=== PATIENT | female | born 1955 | race Caucasian/White ===

== ENCOUNTER 2018-10-30 21:24 | Emergency (ER) | payer OTHER, SELFPAY ==
[2018-10-30 21:31] VITALS: BP 170/69; PULSE 72; RESP 16; TEMP 36.3; O2SAT 98; BMI 26.4
--- NOTE | 2018-10-30 21:33 | DI.RAD.S_ITS ---
PROCEDURE: XR CHEST 1V INDICATIONS: chest pain TECHNIQUE: One view of the chest was acquired. COMPARISON: Elliot JEREMY Mark, CHEST 2 VIEW, 09/23/2009, 10:14. FINDINGS: Surgical changes and devices: None. Lungs and pleura: Lungs are clear. No pleural effusions or pneumothorax. Mediastinum: Mediastinal contours appear unchanged. Heart size is normal. Bones and chest wall: No suspicious bony lesions. Overlying soft tissues appear unremarkable. IMPRESSION: 1. No acute cardiopulmonary disease. Dictated by: Cristian Marcus M.D. on 10/30/2018 at 22:17 Approved by: Cristian Marcus M.D. on 10/30/2018 at 22:17
[2018-10-30 21:50] LABS: Add Manual Diff / Slide Review NO; Basophils Absolute Auto 100 /uL (0-100); Basophils Percent Auto 1.1 % (0-2); Eosinophils Absolute Auto 200 /uL (0-450); Hemoglobin 13.2 g/dL (12.0-16.0); Lymphocytes Absolute Auto 3500 /uL (1100-4500); Lymphocytes Percent Auto 38.6 % (25-40); Mean Corpuscular HGB Conc 33.7 % (30-36); Mean Corpuscular Hemoglobin 29.1 PG (26-34); Mean Corpuscular Volume 86.3 fL (80-100); Monocytes Absolute Auto 800 /uL (0-900); Monocytes Percent Auto 9.4 % (3-14); Neutrophils Absolute Auto 4400 /uL (1500-7000); Neutrophils Percent Auto 48.9 % (50-75); Platelet Count 388 X10^3/uL (150-400); Red Blood Cell Count 4.52 X10^6/uL (4.0-5.2); Red Cell Distribution Width 12.4 % (11.6-14.8); White Blood Cell Count 8.9 X10^3/uL (4.5-11.0)
[2018-10-30 22:00] VITALS: BP 163/72; PULSE 67; RESP 21; O2SAT 97
[2018-10-30 22:00] LABS: Alanine Aminotransferase 30 IU/L (9-52); Albumin 4.4 g/dL (3.5-5.0); Albumin Globulin Ratio 1.7 (1.0-2.8); Alkaline Phosphatase 65 U/L (38-126); Aspartate Aminotransferase 22 IU/L (14-36); BUN Creatinine Ratio 21.3 (6-22); Bilirubin Total 0.2 mg/dL (0.2-1.3); Blood Urea Nitrogen 17 mg/dL (7-17); Calcium 9.5 mg/dL (8.4-10.2); Carbon Dioxide 26 mmol/L (22-32); Chloride 106 mmol/L (98-107); Creatine Kinase 45 U/L (30-135); Estimated Glomerular Filt Rate > 60.0 mL/min (>60); Globulin 2.6 g/dL (1.7-4.1); Glucose 107 mg/dL (80-110); HEMOLYSIS < 15 (0-50); Lipase 176 U/L (23-300); Potassium 4.1 mmol/L (3.4-5.1); Sodium 142 mmol/L (137-145)
[2018-10-30 22:11] LABS: Troponin I < 0.012 ng/mL (0.01-0.034)
[2018-10-30] MEDS: SODIUM CHLORIDE 0.9% 1,000 ML 150 ML IV (22:12)
[2018-10-30] MEDS: ASPIRIN 81 MG TAB 324 MG PO (22:12)
--- NOTE | 2018-10-30 22:34 | ED_ITS ---
HPI - Chest Pain General Chief Complaint: Chest Pain Stated Complaint: CHEST PAINS Time Seen by Provider: 10/30/18 21:35 Source: patient Mode of arrival: ambulatory Limitations: no limitations History of Present Illness HPI narrative: 63F nonsmoker with asthma presents with sharp reproduceable chest pain that started at about noon while leaning over a craft project she is working on. She denies dizziness, weakness, lightheadedness or shortness of breath. She has no nausea, vomiting or diaphoresis. She has no ongoing symptoms. She states her symptoms started when she was leaning over a and she felt a burning and sharp pain in her upper abdomen. She does admit to some radiation to her back. She has a history of reflux and shoulder trouble, the the is a both of which seem to play a role in today's events. MD complaint: chest pain Onset (ago): hour(s) Duration: now resolved Onset: other Pain location: substernal Severity: mild Quality: sharp Pain radiation: back Relieving factors: rest Exacerbating factors: inspiration and movement Treatments prior to arrival chest pain: none Related Data Home Medications Medication Instructions Recorded Confirmed CHOLECALCIFEROL (D-SIL DROPS) 400 units PO QDAY #0 06/17/12 [FLAX OIL] 2,000 iu Q DAY #0 09/04/16 cyanocobalamin (vitamin B-12) 500 mcg PO QDAY #0 09/04/16 [Vitamin B-12] Previous Rx's Medication Instructions Recorded albuterol sulfate 3 ml INH Q4HP PRN #30 mg 12/14/16 albuterol sulfate [Proventil HFA] 1 puff INH Q4HP PRN #2 inh 12/15/16 Allergies Allergy/AdvReac Type Severity Reaction Status Date / Time codeine [CODEINE] Allergy Intermediate NAUSEA, Verified 10/30/18 21:31 HALLUCINATIONS GRASS Allergy Severe SYSTEMIC Uncoded 10/30/18 21:31 SWELLING AND ITCHING YELLOW HORNET Allergy Intermediate YAWNING, Uncoded 10/30/18 21:31 TEARING SULFA Allergy Mild RASH Uncoded 10/30/18 21:31 TREE POLLEN Allergy Mild Uncoded 10/30/18 21:31 Review of Systems Constitutional Denies chills, Denies fever(s), Denies lethargy and Denies weakness Eyes Denies change in vision, Denies eye discharge, Denies irritation and Denies loss of vision ENT Ears, Nose, Mouth, and Throat: Denies change in voice, Denies neck pain and De nies sore throat Cardiovascular Reports chest pain, Denies irregular heart rhythm, Denies lightheadedness, Denies palpitations, Denies dyspnea, Denies dyspnea on exertion and Denies orthopnea Respiratory Denies cough, Denies dyspnea, Denies dyspnea on exertion and Denies wheezing Gastrointestinal Gastrointestinal: Denies abdominal pain, Denies change in bowel habits, Denies diarrhea, Denies nausea and Denies vomiting Genitourinary Denies hematuria, Denies flank pain, Denies urinary incontinence and Denies urinary urgency Musculoskeletal Denies neck pain Integumentary/Breasts Denies pruritus, Denies erythema, Denies rash and Denies wounds Neurologic Denies confusion, Denies loss of vision and Denies weakness Psychiatric Denies anxiety, Denies confusion, Denies depression, Denies homicidal ideation and Denies suicidal ideation Endocrine Denies palpitations Hematologic/Lymphatic Denies easy bruising Allergic/Immunologic Denies wheezing PFSH Surgical History Status post laparoscopy Family History Brother Age: 58 Parkinson's disease High cholesterol Brother Age: 52 High cholesterol Father Age: 87 High cholesterol Trigeminal neuralgia Grandfather Stroke Family History Brother Age: 58 Parkinson's disease High cholesterol Brother Age: 52 High cholesterol Father Age: 87 High cholesterol Trigeminal neuralgia Grandfather Stroke Exam Narrative Exam Narrative: GENERAL: A 63-year-old female appears younger than stated age, resting comfortably and in no obvious distress HEAD: Atraumatic. Normocephalic. EYES: Pupils equal round and reactive. Extraocular motions intact. ENT: Nose without bleeding, purulent drainage or septal hematoma. NECK: Trachea midline. No JVD or lymphadenopathy. CARDIOVASCULAR: Regular rate and rhythm without murmurs, gallops, or rubs. RESPIRATORY: Clear to auscultation. Breath sounds equal bilaterally. No wheezes, rales, or rhonchi. GASTROINTESTINAL: Abdomen soft, non-tender, nondistended. No hepato- splenomegaly, or palpable masses. No guarding. EXTREMITIES: No clubbing, cyanosis, or edema. No joint tenderness, effusion, or edema noted. BACK: Nontender without deformity or crepitance. No flank tenderness. NEURO: AOx3. SKIN: No rash or erythema. Initial Vital Signs Initial Vital Signs: Vital Signs Temperature 97.4 F L 10/30/18 21:31 Pulse Rate 72 10/30/18 21:31 Respiratory Rate 16 10/30/18 21:31 Blood Pressure 170/69 H 10/30/18 21:31 Pulse Oximetry 98 10/30/18 21:31 Scores HEART Score Heart Score history: Slightly Suspicious Heart Score EKG: Normal Heart Score Age: 45-64 years old Heart Score risk factors: No known risk factors Heart Score troponin: < or = to normal limit Heart Score Total: 1 Course Orders Ordered: ED Orders 10/30/18 21:33 XR chest 1V Stat EKG-12 Lead Stat 10/30/18 21:40 Complete Blood Count AUTO DIFF Stat Comprehensive Metabolic Panel Stat Lipase Stat Troponin & CK Cardiac Panel Stat 10/31/18 EKG-12 Lead Stat Discontinued Medications Aspirin (Aspirin Chew) 324 mg PO NOW ONE Stop: 10/30/18 21:34 Last Admin: 10/30/18 22:12 Dose: 324 mg Sodium Chloride (Normal Saline 0.9%) 1,000 mls @ 150 mls/hr IV CONT FANNY Last Infusion: 10/30/18 22:51 Dose: 0 mls/hr Admin: 10/30/18 22:12 Dose: 150 mls/hr Reevaluation(s) Reevaluation #1: Patient is symptom-free for duration of visit. Vital Signs - 8 hr 10/30/18 21:31 10/30/18 22:00 Temperature 97.4 F L Pulse Rate 72 67 Respiratory Rate 16 21 Blood Pressure 170/69 H Blood Pressure [Right Arm] 163/72 H Pulse Oximetry 98 97 MDM - Chest Pain Lab Data Result diagrams: 10/30/18 21:40 10/30/18 21:40 Lab Results 10/30/18 10/30/18 Range/Units 21:40 21:40 WBC 8.9 (4.5-11.0) X10^3/uL RBC 4.52 (4.0-5.2) X10^6/uL Hgb 13.2 (12.0-16.0) g/dL Hct 39.0 (36-46) % MCV 86.3 (80-100) fL MCH 29.1 (26-34) PG MCHC 33.7 (30-36) % RDW 12.4 (11.6-14.8) % Plt Count 388 (150-400) X10^3/uL Neut % (Auto) 48.9 L (50-75) % Lymph % (Auto) 38.6 (25-40) % [place] % (Auto) 9.4 (3-14) % Eos % (Auto) 2.0 (2-4) % Baso % (Auto) 1.1 (0-2) % Neut # (Auto) 4400 (2777-1178) /uL Lymph # (Auto) 3500 (1777-8671) /uL [place] # (Auto) 800 (0-900) /uL Eos # (Auto) 200 (0-450) /uL Baso # (Auto) 100 (0-100) /uL Sodium 142 (137-145) mmol/L Potassium 4.1 (3.4-5.1) mmol/L Chloride 106 (98-107) mmol/L Carbon Dioxide 26 (22-32) mmol/L BUN 17 (7-17) mg/dL Creatinine 0.80 (0.52-1.04) mg/dL Estimated GFR > 60.0 (>60) mL/min BUN/Creatinine Ratio 21.3 (6-22) Glucose 107 (80-110) mg/dL Calcium 9.5 (8.4-10.2) mg/dL Total Bilirubin 0.2 (0.2-1.3) mg/dL AST 22 (14-36) IU/L ALT 30 (9-52) IU/L Alkaline Phosphatase 65 (38-126) U/L Total Creatine Kinase 45 (30-135) U/L CK-MB (CK-2) TNP CK-MB (CK-2) Rel Index TNP Troponin I < 0.012 (0.01-0.034) ng/mL Total Protein 7.0 (6.3-8.2) g/dL Albumin 4.4 (3.5-5.0) g/dL Globulin 2.6 (1.7-4.1) g/dL Albumin/Globulin Ratio 1.7 (1.0-2.8) Lipase 176 (23-300) U/L Imaging Data Chest x-ray: Radiologist's impression: [address] [address] XRay Report Signed Patient: Louann Garcia PMR#: [id number] : 7Acct:[id number] Age/Sex: 63 / FDate of Service: 10/30/18 Loc: ED Accession Number: [id number] Procedure: XR chest 1V Ordering Provider: Nikolai Beatty D.O. PROCEDURE: XR CHEST 1V INDICATIONS: chest pain TECHNIQUE: One view of the chest was acquired. COMPARISON: JEREMY Tenorio, CHEST 2 VIEW, 09/23/2009, 10:14. FINDINGS: Surgical changes and devices: None. Lungs and pleura: Lungs are clear. No pleural effusions or pneumothorax. Mediastinum: Mediastinal contours appear unchanged. Heart size is normal. Bones and chest wall: No suspicious bony lesions. Overlying soft tissues appear unremarkable. IMPRESSION: 1. No acute cardiopulmonary disease. Dictated by: Cristian Marcus M.D. on 10/30/2018 at 22:17 ECG Data Attestation: I personally reviewed and interpreted this ECG as follows: Prior ECG tracings: not available for review Interpretation: EKG is normal sinus rhythm rate [ 70] and free of any signs of ischemia or ectopy. No ST segmental elevation or depression. No T wave inversions MDM Narrative Medical decision making narrative: Multiple etiologies for patient's symptoms considered including: [A musculoskeletal, the reflux, a cardiac ischemia, pulmonary embolism, versus other] Patient's symptoms improved or duration of stay with above-stated therapies. Findings and discharge diagnosis discussed with patient/family followed by jason yost understanding Return precautions discussed with patient/family whom verbalize understanding. Discharge Plan Departure Patient Disposition: Home Clinical Impression: Atypical chest pain Hypertension Qualifiers: Hypertension type: essential hypertension Qualified Code(s): I10 - Essential (primary) hypertension Discharge Date/Time: 10/30/18 22:53 Interventions: ED Discharge Assessment Last Done: 10/30/18 22:53 Instructions: DI for Atypical Chest Pain Activity Restrictions/Additional Instructions: *You have been diagnosed with [ atypical chest pain ] *What to do: *Take medications as directed, including a baby aspirin daily *Follow up with your primary care provider in 2-3 days, call for an appointment. Let them know you were seen in the Emergency Department and that we ask that you be seen in follow up *Return to ER if you should have any new, worsening or concerning symptoms Prescriptions: No Action CHOLECALCIFEROL (D-SIL DROPS) 400 units PO QDAY Qty: 0 RF: 0 cyanocobalamin (vitamin B-12) [Vitamin B-12] 500 MCG tablet 500 mcg PO QDAY Qty: 0 RF: 0 [FLAX OIL] 2,000 iu Q DAY Qty: 0 RF: 0 albuterol sulfate 2.5 MG/3 ML solution for nebulization 3 ml INH Q4HP PRNQty: 30 RF: 2 albuterol sulfate [Proventil HFA] 90 MCG/PUFF HFA aerosol inhaler 1 puff INH Q4HP PRNQty: 2 RF: 2 Referrals: Jose Rea MD [Primary Care Provider] -
== END 2018-10-30 22:53 | disposition home or self-care (01) ==
PROVIDERS: Emergency Provider Emergency Medicine; Family Provider Family Medicine; PCP Family Medicine
DX: R07.89 Other chest pain (principal); I10 Essential (primary) hypertension
CPT/HCPCS: 36591; 71045; 80053; 82550; 83690; 84484; 85025; 93005; 96360; 99283; 99285

== ENCOUNTER → 2019-04-03 09:34 | Outpatient (CLI) | payer OTHER, SELFPAY ==
--- NOTE | 2019-04-03 | DI.MRI.S_ITS ---
PROCEDURE: MR HEAD/BRAIN WO CON INDICATIONS: Unqualified visual loss, both eyes TECHNIQUE: Non-contrast axial T1 spin echo, axial T2 fast spin echo, sagittal and axial FLAIR, coronal T2 fast spin echo, axial gradient echo, axial diffusion and ADC through the brain. COMPARISON: None. FINDINGS: Image quality: Excellent. CSF spaces: Ventricles appear symmetric in size and shape. Basal cisterns are patent. No extra-axial fluid collections. Brain: No intracranial bleeds or mass effects. There is cerebral volume loss for age. There are periventricular and deep white matter chronic small vessel ischemic changes. Brainstem appears normal. Diffusion-weighted images show no acute ischemic insults. No chronic ischemic insults. Normal intravascular flow voids are present. Skull and face: In this patient with this given history, scrutiny is given to the orbits. The limits of this noncontrast study, no significant globe or orbital abnormalities can be seen. Calvarial bone marrow is normal in signal. Note is made of a cavum septum pellucidum. When discovered in isolation, this is considered to be a developmental variant of no clinical consequence. Sinuses: Sinuses and mastoids are clear. IMPRESSION: Unremarkable intracranial study for age. No findings of acute or subacute infarction can be seen. No orbital abnormality can be seen the limits of this study. Dictated by: Pancho Gracia M.D. on 04/03/2019 at 9:31 Approved by: Pancho Gracia M.D. on 04/03/2019 at 9:34
== END ==
PROVIDERS: PCP Family Medicine; Visit Provider Family Medicine
DX: H54.3 Unqualified visual loss, both eyes (principal)
CPT/HCPCS: 70551

== ENCOUNTER 2019-04-21 11:51 | Emergency (ER) | payer OTHER, SELFPAY ==
[2019-04-21] VITALS (7 sets, daily range): BP systolic 128–183; BP diastolic 56–76; PULSE 60–84; RESP 13–21; TEMP 36.4; O2SAT 97–100
[2019-04-21 12:18] LABS: Add Manual Diff / Slide Review NO; Basophils Absolute Auto 100 /uL (0-100); Basophils Percent Auto 0.7 % (0-2); Eosinophils Absolute Auto 100 /uL (0-450); Eosinophils Percent Auto 1.6 % (2-4); Hematocrit 42.2 % (36-46); Hemoglobin 14.5 g/dL (12.0-16.0); Lymphocytes Absolute Auto 2400 /uL (1100-4500); Lymphocytes Percent Auto 31.5 % (25-40); Mean Corpuscular HGB Conc 34.3 % (30-36); Mean Corpuscular Hemoglobin 29.7 PG (26-34); Mean Corpuscular Volume 86.7 fL (80-100); Monocytes Absolute Auto 500 /uL (0-900); Monocytes Percent Auto 6.7 % (3-14); Neutrophils Absolute Auto 4600 /uL (1500-7000); Neutrophils Percent Auto 59.5 % (50-75); Platelet Count 441 X10^3/uL (150-400); Red Blood Cell Count 4.86 X10^6/uL (4.0-5.2); Red Cell Distribution Width 12.6 % (11.6-14.8); White Blood Cell Count 7.7 X10^3/uL (4.5-11.0)
--- NOTE | 2019-04-21 12:37 | DI.CT.S_ITS ---
PROCEDURE: CT ABDOMEN PELVIS W CON INDICATIONS: severe right lower quad pain, sent from [facility]? TECHNIQUE: After the administration of intravenous contrast, 5 mm thick sections acquired from the diaphragm to the symphysis. 5 mm coronal and sagittal reformats were acquired. For radiation dose reduction, the following was used: automated exposure control, adjustment of mA and/or kV according to patient size. COMPARISON: None. FINDINGS: Image quality: Excellent. ABDOMEN: Lung bases: Lung bases are clear. Heart size is normal. Solid organs: Liver is normal in size and enhancement. Gallbladder appears normal. Biliary system is non dilated. Pancreas enhances normally. Spleen is normal in size and enhancement. No adrenal nodules. Kidneys demonstrate normal size and enhancement, without hydronephrosis. Peritoneum and bowel: Bowel loops demonstrate normal wall thickness and caliber. No free fluid or air. Nodes and vessels: No retroperitoneal or mesenteric adenopathy by size criteria. Aorta and inferior vena cava are normal in size. Miscellaneous: No ventral hernias. PELVIS: Genitourinary: Bladder wall thickness is normal. No adnexal pathology found. Miscellaneous: No inguinal hernias or adenopathy. No evidence of appendicitis Bones: No suspicious bony lesions. No vertebral body compression fractures. IMPRESSION: Source of pain is not seen. The right ovary is visualized and appears normal (centered on series 2 image 63). A normal or abnormal appendix could not be located. No secondary CT evidence of acute appendicitis is found. Dictated by: Charles Serrano M.D. on 04/21/2019 at 13:23 Approved by: Charles Serrano M.D. on 04/21/2019 at 13:25
[2019-04-21 12:39] LABS: Alanine Aminotransferase 30 IU/L (9-52); Albumin 4.8 g/dL (3.5-5.0); Albumin Globulin Ratio 1.7 (1.0-2.8); Alkaline Phosphatase 71 U/L (38-126); Aspartate Aminotransferase 29 IU/L (14-36); BUN Creatinine Ratio 17.1 (6-22); Bilirubin Total 0.6 mg/dL (0.2-1.3); Blood Urea Nitrogen 12 mg/dL (7-17); Calcium 9.6 mg/dL (8.4-10.2); Carbon Dioxide 27 mmol/L (22-32); Chloride 103 mmol/L (98-107); Estimated Glomerular Filt Rate > 60.0 mL/min (>60); Globulin 2.9 g/dL (1.7-4.1); Glucose 96 mg/dL (80-110); HEMOLYSIS < 15 (0-50); Lipase 121 U/L (23-300); Sodium 142 mmol/L (137-145); Total Protein 7.7 g/dL (6.3-8.2)
[2019-04-21] MEDS: SODIUM CHLORIDE 0.9% 1,000 ML 150 ML IV (12:39)
--- NOTE | 2019-04-21 12:54 | ED.ABDPAIN ---
HPI - Abdominal Pain General Chief Complaint: Abdominal Pain Stated Complaint: Right side abd pain Time Seen by Provider: 04/21/19 11:54 Source: patient Mode of arrival: Ambulatory History of Present Illness HPI narrative: 63-year-old female nonsmoker with history of endometriosis and asthma presents with her from [place] for evaluation of abdominal pain. Her pain started as periumbilical and was quite reminiscent of prior episodes of endometriosis, though she has not had an episode over 20 years and went through menopause 10 years ago. Over the course of the morning she had a migration of her pain to the right side of her abdomen a bit. She denies any fever or chills. She had some nausea but no vomiting. She has a strong appetite and is hungry upon arrival. She denies any runny nose, sore throat or cough. She has no chest pain or shortness of breath. She denies any provocation or palliation of her pain. She was seen and evaluated by her PCP whom sent her here for evaluation of possible appendicitis or other. She denies dysuria, frequency or urgency. She has had no vaginal bleeding or discharge MD complaint: abdominal pain Onset (ago): hour(s) Pain Consistency: constant Location: periumbilical and RLQ Severity: moderate Quality: cramping and aching Relieving factors: rest Exacerbating factors: movement Associated symptoms: nausea Related Data Patient : No Home Medications Medication Instructions Recorded Confirmed albuterol sulfate [Proventil HFA] 1 puff INHALATION Q4-6H PRN 04/21/19 04/21/19 epinephrine [EpiPen] 0.3 mg IM PRN PRN 04/21/19 04/21/19 Allergies Allergy/AdvReac Type Severity Reaction Status Date / Time codeine [CODEINE] Allergy Intermediate NAUSEA, Verified 02/19/19 16:57 HALLUCINATIONS GRASS Allergy Severe SYSTEMIC Uncoded 10/30/18 21:31 SWELLING AND ITCHING YELLOW HORNET Allergy Intermediate YAWNING, Uncoded 10/30/18 21:31 TEARING SULFA Allergy Mild RASH Uncoded 10/30/18 21:31 TREE POLLEN Allergy Mild Uncoded 10/30/18 21:31 Review of Systems Constitutional Constitutional: Denies chills, Denies fatigue, Denies fever(s), Denies frequent falls, Denies lethargy and Denies weakness Eyes Eyes: Denies change in vision, Denies eye discharge, Denies irritation and Denies loss of vision ENT Ears, Nose, Mouth, and Throat: Denies change in voice, Denies dizziness, Denies neck pain, Denies sore throat and Denies throat swelling Cardiovascular Cardiovascular: Denies chest pain, Denies irregular heart rhythm, Denies lightheadedness, Denies palpitations, Denies dyspnea, Denies dyspnea on exertion and Denies orthopnea Respiratory Respiratory: Denies cough, Denies dyspnea, Denies dyspnea on exertion and Denies wheezing Gastrointestinal Gastrointestinal: Reports abdominal pain, Denies change in bowel habits, Denies diarrhea, Reports nausea and Denies vomiting Genitourinary Genitourinary: Denies hematuria, Denies flank pain, Denies urinary incontinence and Denies urinary urgency Musculoskeletal Musculoskeletal: Denies back pain, Denies muscle weakness, Denies neck pain, Denies numbness and Denies tingling Integumentary/Breasts Skin/Breast: Denies pruritus, Denies erythema, Denies rash and Denies wounds Neurologic Neurologic: Denies behavioral changes, Denies confusion, Denies dizziness, Denies frequent falls, Denies loss of vision, Denies numbness, Denies tingling and Denies weakness Psychiatric Psychiatric: Denies anxiety, Denies behavioral changes, Denies confusion, Denies depression, Denies homicidal ideation and Denies suicidal ideation Endocrine Endocrine: Denies fatigue, Denies flushing and Denies palpitations Hematologic/Lymphatic Hematologic/Lymphatic: Denies easy bruising Allergic/Immunologic Allergic/Immunologic: Denies urticaria, Denies throat swelling and Denies wheezing PFSH Surgical History Status post laparoscopy Family History Brother Age: 59 Parkinson's disease High cholesterol Brother Age: 53 High cholesterol Father Age: 88 High cholesterol Trigeminal neuralgia Grandfather Stroke Social History Smoking Status: Never smoker Family History Brother Age: 59 Parkinson's disease High cholesterol Brother Age: 53 High cholesterol Father Age: 88 High cholesterol Trigeminal neuralgia Grandfather Stroke Social History (Reviewed 04/21/19 @ 20:55 by TRISH Delaney Smoking Status: Never smoker Exam Narrative Exam Narrative: GENERAL: [63] year old patient appears stated age. Well-nourished, well-developed patient, in mild distress. HEAD: Atraumatic. Normocephalic. EYES: Pupils equal round and reactive. Extraocular motions intact. No scleral icterus. No injection or drainage. ENT: Nose without bleeding, purulent drainage. Throat without erythema, tonsillar hypertrophy or exudate. Airway patent. NECK: Trachea midline. Non tender CARDIOVASCULAR: Regular rate and rhythm without murmurs, gallops, or rubs. RESPIRATORY: Clear to auscultation. Breath sounds equal bilaterally. No wheezes, rales, or rhonchi. GASTROINTESTINAL: Abdomen soft, mild periumbilical tenderness, nondistended. No pain at McBurney's, no Rovsing's, no pain with heel tap. No obturator or psoas sign EXTREMITIES: No edema or joint tenderness. BACK: Nontender without deformity or crepitance. No flank tenderness. NEURO: AOx3. SKIN: No rash or erythema of visible areas Initial Vital Signs Initial Vital Signs: Vital Signs Temperature 97.5 F L 04/21/19 11:59 Pulse Rate 84 04/21/19 11:59 Respiratory Rate 13 04/21/19 11:59 Blood Pressure 183/76 H 04/21/19 11:59 Pulse Oximetry 99 04/21/19 11:59 Course Course Course Narrative: Orders Ordered: ED Orders 04/21/19 12:10 Complete Blood Count AUTO DIFF Stat Comprehensive Metabolic Panel Stat Lipase Stat 04/21/19 12:37 CT abdomen pelvis w con Stat 04/21/19 14:50 US pelvic complete Stat Discontinued Medications Sodium Chloride (Normal Saline 0.9%) 1,000 mls @ 150 mls/hr IV CONT FANNY Last Infusion: 04/21/19 17:42 Dose: 0 mls/hr Documented by: LEONELARRINGTO Admin: 04/21/19 12:39 Dose: 150 mls/hr Documented by: LEONELARRINGTO Consultations Consultation #1: Brief discussion with OB Gyne regarding follow-up plan for fibroids. Vital Signs Vital signs: Vital Signs - 8 hr 04/21/19 13:05 04/21/19 14:00 04/21/19 15:00 Pulse Rate 70 67 66 Respiratory Rate 21 18 17 Blood Pressure [Left Arm] 146/72 H 130/65 138/66 Pulse Oximetry 100 97 98 04/21/19 16:00 04/21/19 17:00 Pulse Rate 68 63 Respiratory Rate 18 15 Blood Pressure [Left Arm] 137/76 128/56 L Pulse Oximetry 98 99 MDM - Abdominal Pain Lab Data Result diagrams: 04/21/19 12:10 04/21/19 12:10 Labs: Lab Results 04/21/19 04/21/19 Range/Units 12:10 12:10 WBC 7.7 (4.5-11.0) X10^3/uL RBC 4.86 (4.0-5.2) X10^6/uL Hgb 14.5 (12.0-16.0) g/dL Hct 42.2 (36-46) % MCV 86.7 (80-100) fL MCH 29.7 (26-34) PG MCHC 34.3 (30-36) % RDW 12.6 (11.6-14.8) % Plt Count 441 H (150-400) X10^3/uL Neut % (Auto) 59.5 (50-75) % Lymph % (Auto) 31.5 (25-40) % [place] % (Auto) 6.7 (3-14) % Eos % (Auto) 1.6 L (2-4) % Baso % (Auto) 0.7 (0-2) % Neut # (Auto) 4600 (6720-9722) /uL Lymph # (Auto) 2400 (7803-5947) /uL [place] # (Auto) 500 (0-900) /uL Eos # (Auto) 100 (0-450) /uL Baso # (Auto) 100 (0-100) /uL Sodium 142 (137-145) mmol/L Potassium 4.0 (3.4-5.1) mmol/L Chloride 103 (98-107) mmol/L Carbon Dioxide 27 (22-32) mmol/L BUN 12 (7-17) mg/dL Creatinine 0.70 (0.52-1.04) mg/dL Estimated GFR > 60.0 (>60) mL/min BUN/Creatinine Ratio 17.1 (6-22) Glucose 96 (80-110) mg/dL Calcium 9.6 (8.4-10.2) mg/dL Total Bilirubin 0.6 (0.2-1.3) mg/dL AST 29 (14-36) IU/L ALT 30 (9-52) IU/L Alkaline Phosphatase 71 (38-126) U/L Total Protein 7.7 (6.3-8.2) g/dL Albumin 4.8 (3.5-5.0) g/dL Globulin 2.9 (1.7-4.1) g/dL Albumin/Globulin Ratio 1.7 (1.0-2.8) Lipase 121 (23-300) U/L Point of care testing: Urine Dip Bedside Urine Glucose Negative Bedside Urine Bilirubin - Negative Bedside Urine Ketone - Negative Urine Specific [place] 1.015 Bedside Urine Occult Blood - Negative Bedside Urine pH 6.0 Bedside Urine Protein - Negative Bedside Urine Urobilinogen - Negative Bedside Urine Nitrite - Negative Bedside Urine Leukocytes - Negative Esterase Imaging Data CT scan - abdomen: Radiologist's impression: [facility] [employer] DATE TYPE STATUS AUTHOR 04/21/19 14:50 Jayesh Lawler 04/21/19 12:37 Charles Serrano 04/03/19 00:00 Pancho Gracia 10/30/18 21:33 Cristian Marcus Sheila P 63, F1955 DEP ER, [facility] 65.771kg Abdominal Pain Search Chart No Data to Display NAUSEA, HALLUCINATIONS SYSTEMIC SWELLING AND ITCHING YAWNING, TEARING RASH ONSET 09/04/16 09/04/16 09/04/16 09/04/16 09/04/16 09/04/16 09/04/16 Today 17:00 Louann Garcia P 63 F 1955 [place] [address] CT Scan Report Signed Patient: Louann Garcia PMR#: [id number] : 1955cct:[id number] Age/Sex: 63 / FDate of Service: 04/21/19 Loc: ED Accession Number: [id number] Procedure: CT abdomen pelvis w con Ordering Provider: Nikolai Beatty D.O. PROCEDURE: CT ABDOMEN PELVIS W CON INDICATIONS: severe right lower quad pain, sent from [facility]? TECHNIQUE: After the administration of intravenous contrast, 5 mm thick sections acquired from the diaphragm to the symphysis. 5 mm coronal and sagittal reformats were acquired. For radiation dose reduction, the following was used: automated exposure control, adjustment of mA and/or kV according to patient size. COMPARISON: None. FINDINGS: Image quality: Excellent. ABDOMEN: Lung bases: Lung bases are clear. Heart size is normal. Solid organs: Liver is normal in size and enhancement. Gallbladder appears normal. Biliary system is non dilated. Pancreas enhances normally. Spleen is normal in size and enhancement. No adrenal nodules. Kidneys demonstrate normal size and enhancement, without hydronephrosis. Peritoneum and bowel: Bowel loops demonstrate normal wall thickness and caliber. No free fluid or air. Nodes and vessels: No retroperitoneal or mesenteric adenopathy by size criteria. Aorta and inferior vena cava are normal in size. Miscellaneous: No ventral hernias. PELVIS: Genitourinary: Bladder wall thickness is normal. No adnexal pathology found. Miscellaneous: No inguinal hernias or adenopathy. No evidence of appendicitis Bones: No suspicious bony lesions. No vertebral body compression fractures. IMPRESSION: Source of pain is not seen. The right ovary is visualized and appears normal (centered on series 2 image 63). A normal or abnormal appendix could not be located. No secondary CT evidence of acute appendicitis is found. Dictated by: Charles Serrano M.D. on 04/21/2019 at 13:23 Approved by: Charles Serrano M.D. on 04/21/2019 at 13:25 US - abdomen: Radiologist's impression: Chart [facility] DATE TYPE STATUS AUTHOR Paula 04/21/19 14:50 Jayesh Lawler 04/21/19 12:37 Charles Serrano 04/03/19 00:00 Pancho Gracia 10/30/18 21:33 Cristian Marcus Sheila P 63, F1955 DEP ER, [facility] 65.771kg Abdominal Pain Search Chart No Data to Display NAUSEA, HALLUCINATIONS SYSTEMIC SWELLING AND ITCHING YAWNING, TEARING RASH ONSET 09/04/16 09/04/16 09/04/16 09/04/16 09/04/16 09/04/16 09/04/16 Today 17:00 Louann Garcia P 63 F [address] [address] Ultrasound Report Signed Patient: Louann Garcia PMR#: [id number] : 1955cct:[id number] Age/Sex: 63 / FDate of Service: 04/21/19 Loc: ED Accession Number: [id number] Procedure: US pelvic complete Ordering Provider: Nikolai Beatty D.O. PROCEDURE: US PELVIC COMPLETE INDICATIONS: SEVERE RLQ PAIN, NORMAL CT TECHNIQUE: Real-time scanning was performed of the pelvic organs, with image documentation. Additional endovaginal scanning was necessary due to incomplete visualization of the adnexal and endometrial structures by transabdominal scanning. COMPARISON: [facility], CT, CT ABDOMEN PELVIS W CON, 04/21/2019, 12:52. FINDINGS: Transabdominal scanning: Limited scanning through the kidneys shows no hydronephrosis. 3.9 cm left renal cyst is again seen unchanged from CT study. No pathologic free abdominal fluid. Physiologic amount of free fluid is seen in the pelvis. Endovaginal scanning: Uterus: Uterus is normal in size at the 5.2 x 2.4 x 3.6 cm. The endometrium measures 3 mm in combined thickness. There is no endometrial mass or fluid. Diffusely heterogeneous myometrial echotexture is seen. 1.1 x 1 x 1 cm posterior submucosal fibroid is noted. 1.5 x 1.2 x 2 cm subserosal fibroid is also seen in posterior myometrium. 9 x 6 x 8 mm complex area with trace amount of free fluid is seen within the endocervical canal. Ovaries: Right ovary measures 1.8 x 1.1 x 1.3 cm in size. Left ovary measures 2.5 x 0.9 x 1.1 cm in size. 6 mm cyst is seen in left ovary. No gross solid renal lesion. IMPRESSION: 1. Heterogeneous myometrial echotexture with 2 uterine fibroids as above. 2. Small amount of fluid with 9 mm complex structure seen within the endocervical canal which could represent debris versus small polyp. [employer] correlation is recommended. No gross endometrial mass or fluid. 3. No gross abnormality is seen in bilateral ovaries. Dictated by: Jayesh Lawler M.D. on 04/21/2019 at 16:57 Approved by: Jayesh Lawler M.D. on 04/21/2019 at 17:02 [facility] Narrative Medical decision making narrative: Multiple etiologies for patient's symptoms considered including: [Appendicitis versus kidney stone versus ovarian cyst versus torsion versus gastroenteritis versus mesenteric adenitis versus other] Patient's symptoms improved or duration of stay with above-stated therapies. Findings and discharge diagnosis discussed with patient/family followed by verbalization of understanding Return precautions discussed with patient/family whom verbalize understanding. Discharge Plan Departure Patient Disposition: Home Clinical Impression: Fibroid uterus Qualifiers: Uterine leiomyoma location: unspecified location Qualified Code(s): D25.9 - Leiomyoma of uterus, unspecified Discharge Date/Time: 04/21/19 17:43 Instructions: DI for Uterine Fibroids Activity Restrictions/Additional Instructions: *You have been diagnosed with [pelvic pain most consistent with uterine fibroids, kidney stones and appendicitis considered but thought less likely given the results of our workup] *What to do: *Take medications as directed *Follow up with your primary care provider in 2-3 days, call for an appointment. Let them know you were seen in the Emergency Department and that we ask that you be seen in follow up *Return to ER if you should have any new, worsening or concerning symptoms, Prescriptions: No Action albuterol sulfate [Proventil HFA] 90 MCG/PUFF HFA aerosol inhaler 1 puff INHALATION Q4-6H PRN (Reason: Shortness Of Breath) RF: 0 epinephrine [EpiPen] 0.3 mg/0.3 mL Auto-Injector 0.3 mg IM PRN PRN (Reason: Allergic Reaction) RF: 0 Referrals: Jose Rosenthal MD [Physician] - Jose Rea MD [Primary Care Provider] -
--- NOTE | 2019-04-21 14:50 | DI.US.S_ITS ---
PROCEDURE: US PELVIC COMPLETE INDICATIONS: SEVERE RLQ PAIN, NORMAL CT TECHNIQUE: Real-time scanning was performed of the pelvic organs, with image documentation. Additional endovaginal scanning was necessary due to incomplete visualization of the adnexal and endometrial structures by transabdominal scanning. COMPARISON: [facility], CT, CT ABDOMEN PELVIS W CON, 04/21/2019, 12:52. FINDINGS: Transabdominal scanning: Limited scanning through the kidneys shows no hydronephrosis. 3.9 cm left renal cyst is again seen unchanged from CT study. No pathologic free abdominal fluid. Physiologic amount of free fluid is seen in the pelvis. Endovaginal scanning: Uterus: Uterus is normal in size at the 5.2 x 2.4 x 3.6 cm. The endometrium measures 3 mm in combined thickness. There is no endometrial mass or fluid. Diffusely heterogeneous myometrial echotexture is seen. 1.1 x 1 x 1 cm posterior submucosal fibroid is noted. 1.5 x 1.2 x 2 cm subserosal fibroid is also seen in posterior myometrium. 9 x 6 x 8 mm complex area with trace amount of free fluid is seen within the endocervical canal. Ovaries: Right ovary measures 1.8 x 1.1 x 1.3 cm in size. Left ovary measures 2.5 x 0.9 x 1.1 cm in size. 6 mm cyst is seen in left ovary. No gross solid renal lesion. IMPRESSION: 1. Heterogeneous myometrial echotexture with 2 uterine fibroids as above. 2. Small amount of fluid with 9 mm complex structure seen within the endocervical canal which could represent debris versus small polyp. [employer] correlation is recommended. No gross endometrial mass or fluid. 3. No gross abnormality is seen in bilateral ovaries. Dictated by: Jayesh Lawler M.D. on 04/21/2019 at 16:57 Approved by: Jayesh Lawler M.D. on 04/21/2019 at 17:02
== END 2019-04-21 17:43 | disposition home or self-care (01) ==
PROVIDERS: Emergency Provider Emergency Medicine; PCP Family Medicine
DX: D25.9 Leiomyoma of uterus, unspecified (principal)
CPT/HCPCS: 36591; 74177; 76830; 76856; 80053; 81003; 83690; 85025; 96360; 96361; 99283; 99285; Q9967

== ENCOUNTER → 2019-05-22 10:54 | Outpatient (CLI) | payer OTHER, SELFPAY ==
--- NOTE | 2019-05-22 | DI.MG.S_ITS ---
BILATERAL DIGITAL SCREENING MAMMOGRAM 3D/2D WITH CAD: 05/22/2019 CLINICAL: Routine screening. Comparison is made to exams dated: 07/20/2017 ultrasound, 10/13/2015 mammogram, and 09/27/2012 mammogram - [facility]. The tissue of both breasts is heterogeneously dense. This may lower the sensitivity of mammography. Current study was also evaluated with a Computer Aided Detection (CAD) system. No significant masses, calcifications, or other findings are seen in either breast. There has been no significant interval change. IMPRESSION: NEGATIVE There is no mammographic evidence of malignancy. A 1 year screening mammogram is recommended. This exam was interpreted at Station ID: [id number]. NOTE: For mammograms, a report in lay terms will be sent to the patient. Approximately 15% of breast malignancies will not be visualized mammographically. In the management of a palpable breast mass, a negative mammogram must not discourage biopsy of a clinically suspicious lesion. Electronically Signed By: Ross harman/cindy:05/22/2019 11:53:22 copy to: ENOCH MCKEON letter sent: Normal Exam ACR BI-RADS Category 1: Negative [id number]
== END ==
PROVIDERS: PCP Family Medicine; Visit Provider Family Medicine
DX: Z12.31 Encounter for screening mammogram for malignant neoplasm of breast (principal)
CPT/HCPCS: 77063; 77067

== ENCOUNTER → 2021-12-19 11:35 | Outpatient (CLI) | payer MEDICARE, OTHER, SELFPAY ==
--- NOTE | 2021-12-19 11:43 | DI.MG.S_ITS ---
BILATERAL DIGITAL SCREENING MAMMOGRAM 3D/2D WITH CAD: 12/19/2021 CLINICAL: Routine screening. Comparison is made to exams dated: 05/22/2019 mammogram, 07/20/2017 mammogram, and 10/13/2015 mammogram - [facility]. The tissue of both breasts is heterogeneously dense. This may lower the sensitivity of mammography. Current study was also evaluated with a Computer Aided Detection (CAD) system. There is a possible developing asymmetry in the right breast middle depth lateral region seen on the craniocaudal view only. There is architectural distortion associated with the asymmetry. There also is an oval asymmetry with a circumscribed margin in the right breast middle depth medial region seen on the craniocaudal view only. This is more prominent and increased in size. No other significant masses, calcifications, or other findings are seen in either breast. IMPRESSION: INCOMPLETE: NEEDS ADDITIONAL IMAGING EVALUATION The possible developing asymmetry in the right breast middle depth lateral region seen on the craniocaudal view only is indeterminate. Additional views with possible ultrasound are recommended. The oval asymmetry in the right breast middle depth medial region seen on the craniocaudal view only is indeterminate. Additional views with possible ultrasound are recommended. This exam was interpreted at Station ID: [id number]. NOTE: For mammograms, a report in lay terms will be sent to the patient. Approximately 15% of breast malignancies will not be visualized mammographically. In the management of a palpable breast mass, a negative mammogram must not discourage biopsy of a clinically suspicious lesion. Electronically Signed By: Amee perkins/cindy:12/19/2021 14:16:48 copy to: ENOCH MCKEON letter sent: Additional Imaging Needed ACR BI-RADS Category 0: Incomplete [id number]
--- NOTE | 2021-12-19 11:44 | DI.US.S_ITS ---
PROCEDURE: US ABD AORTA ANEURYSM SCREEN INDICATIONS: AAA SCREEN TECHNIQUE: Real time scanning was performed of the aorta and iliac arteries, with image documentation. COMPARISON: None. FINDINGS: Aorta: Proximal aortic diameter measures 2.2 cm. Mid-aorta measures 1.9 cm. Distal aortic diameter is 1.6 cm. Iliac arteries: Right common iliac artery measures 1.1 cm. Left common iliac artery measures 1.1 cm. IMPRESSION: Negative for aneurysm. Dictated by: Pancho Gracia M.D. on 12/19/2021 at 12:18 Approved by: Pancho Gracia M.D. on 12/19/2021 at 12:25
== END ==
PROVIDERS: PCP Nurse Practitioner Family; Referring Provider Nurse Practitioner Family; Visit Provider Nurse Practitioner Family
DX: Z12.31 Encounter for screening mammogram for malignant neoplasm of breast (principal); Z13.820 Encounter for screening for osteoporosis; Z13.6 Encounter for screening for cardiovascular disorders; M85.851 Other specified disorders of bone density and structure, right thigh; M85.852 Other specified disorders of bone density and structure, left thigh; Z78.0 Asymptomatic menopausal state
CPT/HCPCS: 76706; 77063; 77067; 77080

== ENCOUNTER → 2022-01-16 09:47 | Outpatient (CLI) | payer MEDICARE, OTHER, SELFPAY ==
--- NOTE | 2022-01-16 | DI.US.S_ITS ---
LIMITED ULTRASOUND OF RIGHT BREAST: 01/16/2022 CLINICAL: Patient returns today to evaluate a focal asymmetry in the right breast. No prior exams were available for comparison. Color flow and real-time ultrasound of the right breast 3 o'clock, 6-9 o'clock, and retroareolar regions were performed. Mcdonald scale images of the real-time examination were reviewed. There is a small focal segment of duct ectasia in the right breast at 7 o'clock middle depth. This duct ectasia displays internal echoes. This is an incidental finding. Color flow imaging demonstrates that there is no vascularity present. No sonographic abnormalities seen to correlate with mammographic asymmetries seen in the inner and lateral aspects of the right breast. IMPRESSION: PROBABLY BENIGN There is no abnormality seen in the right breast to correspond with the mammography finding at 3 o'clock and the lateral aspect which likely represents fibroglandular tissue. This is probably benign. A follow-up right mammogram with possible ultrasound in 6 months is recommended to demonstrate stability. Incidental ductal ectasia noted at the 7 o'clock middle depth. Findings and recommendations were conveyed to the patient during today's evaluation. This exam was interpreted at Station ID: [id number]. Electronically Signed By: Ross Shin M.D. aty/:01/16/2022 12:43:59 copy to: ENOCH MCKEON letter sent: Followup Recommended Ultrasound BI-RADS: 3 Probably benign
--- NOTE | 2022-01-16 | DI.MG.S_ITS ---
UNILATERAL RIGHT DIGITAL DIAGNOSTIC MAMMOGRAM 3D/2D WITH ADDITIONAL VIEWS: 01/16/2022 CLINICAL: Additional evaluation requested from prior study. Comparison is made to exams dated: 12/19/2021 mammogram, 05/22/2019 mammogram, and 07/20/2017 mammogram - [facility]. The tissue of right breast is heterogeneously dense. This may lower the sensitivity of mammography. The possible developing asymmetry in the right breast anterior depth lateral region seen on the craniocaudal view only is not reproduced and presumably represented superimposed breast tissue. This is not seen in additional views. The previously described architectural distortion associated with the asymmetry is also no longer seen. There also is an oval asymmetry with a circumscribed margin in the right breast middle depth medial region seen on the craniocaudal view only. This is not significantly changed. No other significant masses or calcifications are seen in the breast. IMPRESSION: INCOMPLETE: NEEDS ADDITIONAL IMAGING EVALUATION An ultrasound is recommended to confirm the no longer seen asymmetry in the right breast anterior depth lateral region seen on the craniocaudal view only. An ultrasound is recommended for further evaluation and is scheduled to immediately follow this examination. The oval asymmetry in the right breast middle depth medial region seen on the craniocaudal view only resembles a cyst or a lymph node and is indeterminate. An ultrasound is recommended for further evaluation and is scheduled to immediately follow this examination. This exam was interpreted at Station ID: [id number]. NOTE: For mammograms, a report in lay terms will be sent to the patient. Approximately 15% of breast malignancies will not be visualized mammographically. In the management of a palpable breast mass, a negative mammogram must not discourage biopsy of a clinically suspicious lesion. Electronically Signed By: Ross Shin M.D. aty/:01/16/2022 12:34:35 copy to: ENOCH MCKEON ACR BI-RADS Category 0: Incomplete [id number]
== END ==
PROVIDERS: PCP Nurse Practitioner Family; Referring Provider Nurse Practitioner Family; Visit Provider Nurse Practitioner Family
DX: R92.8 Other abnormal and inconclusive findings on diagnostic imaging of breast (principal); N60.41 Mammary duct ectasia of right breast
CPT/HCPCS: 76642; 77065; G0279

== ENCOUNTER → 2022-08-21 12:04 | Outpatient (CLI) | payer MEDICARE, OTHER, SELFPAY ==
--- NOTE | 2022-08-21 | DI.MG.S_ITS ---
UNILATERAL RIGHT DIGITAL DIAGNOSTIC MAMMOGRAM 3D/2D SHORT-TERM FOLLOW-UP: 08/21/2022 CLINICAL: Short term follow up. Comparison is made to exams dated: 01/16/2022 mammogram, 12/19/2021 mammogram, 05/22/2019 mammogram, 07/20/2017 mammogram, and 07/05/2017 mammogram - [facility]. The right breast is heterogeneously dense, which may obscure small masses (category c / 51-75% glandular tissue). There is a stable asymmetry in the right breast anterior depth lateral region seen on the craniocaudal view only. No other significant masses or calcifications are seen in the breast. IMPRESSION: PROBABLY BENIGN The stable asymmetry in the right breast is probably benign. A follow-up mammogram in 6 months is recommended to demonstrate stability. Diagnostic workup for this finding was first performed in 01/16/22 with no sonographic correlate. Based on the Tyrer Cuzick model (a risk assessment model) the patient's lifetime risk is 11.4% and her 10 year risk is 5.6%. According to the ACR, ACS, and NCCN guidelines, an annual breast MRI exam along with mammogram is recommended if the patient's lifetime risk is 20% or greater. This exam was interpreted at Station ID: [id number]. NOTE: For mammograms, a report in lay terms will be sent to the patient. Approximately 15% of breast malignancies will not be visualized mammographically. In the management of a palpable breast mass, a negative mammogram must not discourage biopsy of a clinically suspicious lesion. Electronically Signed By: Adolfo Covarrubias M.D. /:08/21/2022 13:35:36 copy to: ENOCH MCKEON letter sent: Followup Recommended ACR BI-RADS Category 3: Probably benign 3343F
--- NOTE | 2022-08-21 12:05 | DI.MRI.S_ITS ---
PROCEDURE: MR HIP RT WO CON INDICATIONS: RIGHT HIP PAIN TECHNIQUE: Noncontrast coronal T1 spin echo and STIR through the bony pelvis. Coronal and axial T2 fast spin echo with fat saturation, sagittal T1 spin echo, and oblique axial T2 fast spin echo with fat saturation through the hip. COMPARISON: None. FINDINGS: Image quality: Excellent. Bones and joints: Bone marrow of the pelvic ring and proximal femurs show normal signal throughout. No intraosseous lesions or fractures. No avascular necrosis of the femoral heads. Disc desiccation and facet hypertrophy are seen in the included lumbar spine. Tendons and ligaments: The gluteus medius and minimus tendons demonstrate insertional tendinosis and trace overlying trochanteric bursal fluid. The proximal iliotibial band appears intact. The iliopsoas tendon appears intact, without adjacent bursal fluid collections. The origin of the hamstring tendon is intact at the ischial tuberosity. The direct and indirect heads of the rectus femoris muscle origin appear intact. Labrum and cartilage: There is mild labral degeneration and a possible small nondisplaced tear of the anterosuperior labrum. Mild surface cartilage irregularity is seen at the superior aspect of the hip with small marginal osteophytes. There is normal morphology of the femoral head and the acetabulum. Soft tissues: Visualized muscles demonstrate normal bulk and internal signal. Quadratus femoris muscle demonstrates no internal edema to suggest ischiofemoral impingement. The proximal sciatic neurovascular bundle appears intact. A subcentimeter uterine fibroid is present. The included portions of the pelvis demonstrate no acute abnormality. IMPRESSION: 1. Mild labral degeneration with suspected small chronic nondisplaced tear of the anterosuperior labrum. 2. 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 3. [id number]-hhghveaw distal gluteus medius and minimus tendinosis. Trace overlying trochanteric bursal effusion or bursitis. 4. Degenerative changes are also noted in the included lumbar spine. Approved by: Arley Cervantes M.D. on 08/21/2022 at 15:05
--- NOTE | 2022-08-21 12:05 | DI.MRI.S_ITS ---
PROCEDURE: MR KNEE RT WO CON INDICATIONS: RIGHT KNEE PAIN TECHNIQUE: Noncontrast sagittal PD fast spin echo and T2 fast spin echo with fat saturation, sagittal 3-D FLASH with fat saturation; coronal T1 spin echo and PD fast spin echo with fat saturation, and axial PD fast spin echo with fat saturation through the knee. COMPARISON: None. FINDINGS: Image quality: Excellent. Anterior Cruciate Ligament: Intact. Posterior Cruciate Ligament: Intact. Medial Collateral Ligament: Intact. Lateral Collateral Ligament: Intact. Medial Meniscus: Intact. Lateral Meniscus: Borderline partial discoid appearance of the lateral meniscus. No discrete meniscal tear. Medial and Lateral Tendons: The semimembranosus tendon insertions and meniscocapsular junction appear intact. Visualized portions of the pes anserinus tendons appear normal. No abnormal bursal fluid. The long and short heads of the biceps femoris tendon appear intact. The popliteus tendon appears intact. No signs of posterolateral corner injury. Iliotibial band appears normal. Anterior Structures: Mild patella katharine. The distal quadriceps tendon is intact. No patellar subluxation. No femoral trochlear dysplasia or ventral trochlear prominence. No edema in the infrapatellar fat pad. Bones: No acute trabecular bone injury or fracture. Medial Femorotibial Cartilage: No focal cartilage defect. Lateral Femorotibial Cartilage: No focal cartilage defect. Patellofemoral Cartilage: Deep cartilage fissuring is seen at the median ridge of the patella and there is mild partial-thickness cartilage irregularity of the medial patellar facet. Focal moderate grade cartilage loss is seen at the inferior aspect of the trochlear groove/medial femoral trochlea. Soft Tissues: There is a small joint effusion. A trace medial popliteal cyst is present. The musculature surrounding the knee is normal in bulk. IMPRESSION: 1. No acute trabecular bone injury. The cruciate and collateral ligaments are intact. No discrete meniscal tear is seen. 2. Focal grade 2-3 cartilage irregularity at the inferior aspect of trochlear groove/medial femoral trochlea. Partial-thickness cartilage fissuring at the median ridge and medial facet of the patella. 3. Mild patella katharine. 4. Small joint effusion. Approved by: Arley Cervantes M.D. on 08/21/2022 at 15:13
== END ==
PROVIDERS: PCP Family Medicine; Referring Provider Nurse Practitioner Family; Visit Provider Nurse Practitioner Family
DX: R92.8 Other abnormal and inconclusive findings on diagnostic imaging of breast (principal); M16.11 Unilateral primary osteoarthritis, right hip; M94.251 Chondromalacia, right hip; N64.89 Other specified disorders of breast; M47.816 Spondylosis without myelopathy or radiculopathy, lumbar region; M25.461 Effusion, right knee; M25.551 Pain in right hip; M25.561 Pain in right knee
CPT/HCPCS: 73721; 77065; G0279

== ENCOUNTER → 2023-05-10 09:25 | Outpatient (CLI) | payer MEDICARE, OTHER, SELFPAY ==
--- NOTE | 2023-05-10 | DI.MG.S_ITS ---
BILATERAL DIGITAL DIAGNOSTIC MAMMOGRAM 3D/2D: 05/10/2023 CLINICAL: Short term follow up of the right breast, due for bilateral imaging. Comparison is made to exams dated: 08/21/2022 mammogram, 01/16/2022 mammogram, 12/19/2021 mammogram, 05/22/2019 mammogram, 07/20/2017 mammogram, and 07/05/2017 mammogram - [facility]. Both breasts are heterogeneously dense, which may obscure small masses (category c / 51-75% glandular tissue). There is a stable benign asymmetry in the right breast middle depth lateral region seen on the craniocaudal view only. This is not seen in additional views. This is less prominent. The previously noted asymmetry disperses with additional views and is consistent with summation artifact. No other significant masses, calcifications, or other findings are seen in either breast. IMPRESSION: BENIGN The stable benign asymmetry in the right breast is benign. The previously described asymmetry disperses with additional views and is consistent with summation artifact. There is no mammographic evidence of malignancy. A 1 year screening mammogram is recommended. Based on the Tyrer Cuzick model (a risk assessment model) the patient's lifetime risk is 10.9% and her 10 year risk is 5.5%. According to the ACR, ACS, and NCCN guidelines, an annual breast MRI exam along with mammogram is recommended if the patient's lifetime risk is 20% or greater. This exam was interpreted at Station ID: [id number]. NOTE: For mammograms, a report in lay terms will be sent to the patient. Approximately 15% of breast malignancies will not be visualized mammographically. In the management of a palpable breast mass, a negative mammogram must not discourage biopsy of a clinically suspicious lesion. Electronically Signed By: Tristen Grove M.D. acr/:05/10/2023 09:59:54 copy to: ENOCH MCKEON letter sent: Normal Exam ACR BI-RADS Category 2: Benign Finding(s) 3342F
== END ==
PROVIDERS: PCP Family Medicine; Referring Provider Family Medicine; Visit Provider Family Medicine
DX: R92.8 Other abnormal and inconclusive findings on diagnostic imaging of breast (principal); N64.89 Other specified disorders of breast
CPT/HCPCS: 77066; G0279

== ENCOUNTER 2023-12-23 21:26 | Emergency (ER) | payer MEDICARE, OTHER, SELFPAY ==
[2023-12-23 21:32] VITALS: BP 169/80; PULSE 72; RESP 18; TEMP 36.8; O2SAT 98
--- NOTE | 2023-12-24 00:52 | DI.RAD.S_ITS ---
PROCEDURE: XR CHEST 1V INDICATIONS: Shortness of breath TECHNIQUE: One view of the chest was acquired. COMPARISON: [facility], CR, XR CHEST 1V, 10/30/2018, 21:46. FINDINGS: Surgical changes and devices: None. Lungs and pleura: Lungs are clear. No pleural effusions or pneumothorax. Mediastinum: Mediastinal contours appear normal. Heart size is normal. Bones and chest wall: No suspicious bony lesions. Overlying soft tissues appear unremarkable. IMPRESSION: No acute cardiopulmonary pathology. Dictated by: Jayesh Lawler M.D. on 12/24/2023 at 1:30 Approved by: Jayesh Lawler M.D. on 12/24/2023 at 1:30
--- NOTE | 2023-12-24 00:56 | PC.NURSE ---
Pt has history of GERD and hiatal hernia. Several outdoor allergies including grass, trees, but she is unsure if symptoms are related to those. Pt states she has had asthma for years but worsening symptoms over the last few days. She does not take GERD medications daily, however over the last few days she has tried some OTC medications without relief. She has a nebulizer but has not used it. Also has a MDI, and has used intermittently
--- NOTE | 2023-12-24 01:25 | ED_ITS ---
HPI - Asthma General Chief Complaint: Asthma Stated Complaint: asthma attacks Time Seen by Provider: 12/24/23 01:23 Source: patient Mode of arrival: Ambulatory Limitations: no limitations History of Present Illness HPI Narrative: This is a 68-year-old female with history of asthma, hiatal hernia with complaint of increased cough for the past 4 5 days. Patient states her asthma tends to be more of a cough variant she uses albuterol inhalers and has not nebs. She has been using albuterol 3 or 4 times daily with minimal improvement. She describes the cough is mostly dry. She has not really had any chest pain or pressure. She feels a little short of breath. She states cough has not really been productive. No fevers or chills she denies any nasal congestion, she denies any postnasal drip. She has not had any nausea or vomiting, no GI or urinary symptoms. No new swelling in extremities. She does have issues with seasonal allergies this time your is much worse. She takes children's dose of Danay she is found with antihistamine she tends to stagger a lot. She has been taking Tums and occasionally Prilosec this will sometimes help with her cough/asthma. Patient is not on any sort of steroid inhaler. She does not use a spacer with her inhaler. She states she was told by healthcare provider she might have aspirated but she does not normally have any difficulty with swallowing or dysphagia. She has not noticed increased cough with food. Patient states no other regular medications. She is allergies to codeine, sulfa. She has had a ex lap in the past. No tobacco, no regular alcohol or recreational drugs. Related Data Home Medications Medication Instructions Recorded Confirmed albuterol sulfate 90 mcg/actuation 1 puff inhalation Q4-6H PRN 04/21/19 06/04/19 aerosol inhaler (Proventil HFA) Shortness Of Breath epinephrine 0.3 mg/0.3 mL 0.3 mg IM PRN PRN Allergic Reaction 04/21/19 06/04/19 injection, auto-injector (EpiPen) Previous Rx's Medication Instructions Recorded prednisone 10 mg tablets in a dose See Rx Instructions PO .COMPLEX 12/24/23 pack #21 ea Allergies Allergy/AdvReac Type Severity Reaction Status Date / Time codeine [CODEINE] Allergy Intermediate NAUSEA, Verified 06/04/19 12:10 HALLUCINATIONS GRASS Allergy Severe SYSTEMIC Uncoded 06/04/19 12:10 SWELLING AND ITCHING YELLOW HORNET Allergy Intermediate YAWNING, Uncoded 06/04/19 12:10 TEARING SULFA Allergy Mild RASH Uncoded 06/04/19 12:10 TREE POLLEN Allergy Mild Uncoded 06/04/19 12:10 Review of Systems Review of Systems ROS Unobtainable: All systems reviewed & are unremarkable except as noted in HPI and below Patient History Medical History Cervical stenosis (uterine cervix) Endometriosis Surgical History Status post laparoscopy Family History Brother Age: 64 Parkinson's disease High cholesterol Brother Age: 58 High cholesterol Father Age: 93 High cholesterol Trigeminal neuralgia Grandfather Stroke Social History Smoking Status: Never smoker Smoking Status: Never smoker Substance Use Type: does not use Exam Narrative Exam Narrative: GEN: well nourished, well appearing female, alert and oriented x 3, patient appears to be in mild distress. HEENT: Atraumatic, pupils are equal round reactive to light, extraocular movements are intact, nares are clear, there is no conjunctival pallor. Throat is clear without any exudates, erythema, tonsillar enlargement or uvular deviation, no cobblestoning or postnasal drip noted. HEART: Regular rate and rhythm without murmur, clicks, rubs. No edema bilateral lower extremities. LUNGS:Lungs clear to auscultation, no wheezes, rales, mild crackles bilateral bases, chest moves symmetrically, patient has a dry cough, no stridor, no hoarseness. No tachypnea accessory muscle use. ABD:bowel sounds normal, soft, non-tender, no guarding, rebound, rigidity, no masses noted, no hepatosplenomegaly MSCL: full range of motion, normal gait NEURO:CN 2-12 intact, sensation normal Initial Vital Signs Initial Vital Signs: Vital Signs Temperature 98.3 F 12/23/23 21:32 Pulse Rate 72 12/23/23 21:32 Respiratory Rate 18 12/23/23 21:32 Blood Pressure 169/80 H 12/23/23 21:32 Pulse Oximetry 98 12/23/23 21:32 Oxygen Delivery Method Room Air 12/23/23 21:32 Course Orders Ordered: ED Orders 12/24/23 00:52 XR chest 1V Stat 12/24/23 01:53 EKG-12 Lead Stat 12/24/23 02:00 Complete Blood Count AUTO DIFF Stat Comprehensive Metabolic Panel Stat Lipase Stat NT-proBNP (BNP-Adult 18+) Stat Troponin & CK Cardiac Panel Stat 12/24/23 02:13 Respiratory Panel (Film Array) Stat Discontinued Medications Prednisone (Prednisone 20 Mg Tablet) 60 mg PO NOW ONE Stop: 12/24/23 03:35 Last Admin: 12/24/23 03:41 Dose: 60 mg Documented By: JUNIOR Vital Signs Vital signs: Vital Signs - 8 hr 12/23/23 21:32 12/24/23 03:02 12/24/23 03:02 Temperature 98.3 F Pulse Rate 72 66 Respiratory Rate 18 20 Blood Pressure 169/80 H 174/83 H Pulse Oximetry 98 96 Oxygen Delivery Method Room Air 12/24/23 03:28 12/24/23 03:28 12/24/23 03:30 Temperature Pulse Rate 74 72 Respiratory Rate 23 18 Blood Pressure 171/74 H Pulse Oximetry 97 97 Oxygen Delivery Method 12/24/23 03:30 Temperature Pulse Rate Respiratory Rate Blood Pressure 167/72 H Pulse Oximetry Oxygen Delivery Method MDM - Asthma Lab Data 12/24/23 02:00 12/24/23 02:00 Labs: Lab Results 12/24/23 12/24/23 Range/Units 02:00 02:13 WBC 8.1 (4.5-11.0) X10^3/uL RBC 4.42 (4.0-5.2) X10^6/uL Hgb 13.0 (12.0-16.0) g/dL Hct 37.8 (36-46) % MCV 85.7 (80-100) fL MCH 29.5 (26-34) PG MCHC 34.4 (30-36) % RDW 12.5 (11.6-14.8) % Plt Count 431 H (150-400) X10^3/uL Neut % (Auto) 46.2 L (50-75) % Lymph % (Auto) 40.0 (25-40) % [place] % (Auto) 8.3 (3-14) % Eos % (Auto) 4.5 H (2-4) % Baso % (Auto) 1.0 (0-2) % Neut # (Auto) 3700 (5115-0803) /uL Lymph # (Auto) 3200 (8035-6644) /uL [place] # (Auto) 700 (0-900) /uL Eos # (Auto) 400 (0-450) /uL Baso # (Auto) 100 (0-100) /uL Sodium 140 (137-145) mmol/L Potassium 4.1 (3.4-5.1) mmol/L Chloride 110 H (98-107) mmol/L Carbon Dioxide 27 (22-32) mmol/L BUN 16 (7-17) mg/dL Creatinine 0.73 (0.52-1.04) mg/dL Estimated GFR > 60 (>60) mL/min BUN/Creatinine Ratio 21.9 (6-22) Glucose 98 (80-110) mg/dL Calcium 9.2 (8.4-10.2) mg/dL Total Bilirubin 0.3 (0.2-1.3) mg/dL AST 23 (14-36) IU/L ALT 25 (<35) IU/L Alkaline Phosphatase 70 (38-126) U/L Total Creatine Kinase 81 (30-135) U/L Troponin I < 0.012 (0.01-0.034) ng/mL NT-Pro-B Natriuret Pep 45 (<125) pg/mL Total Protein 6.8 (6.3-8.2) g/dL Albumin 4.4 (3.5-5.0) g/dL Globulin 2.4 (1.7-4.1) g/dL Albumin/Globulin Ratio 1.8 (1.0-2.8) Lipase 142 (23-300) U/L Chlamy pneumoniae PCR Not detected (Not Detect) Adenovirus (PCR) Not detected (Not Detect) B.parapertussis DNA PCR Not detected (Not Detecte) Coronavirus OC43 (PCR) Not detected (Not Detect) Coronavirus HKU1 (PCR) Not detected (Not Detect) Coronavirus 229E (PCR) Not detected (Not Detect) SARS-CoV-2 (PCR) Not detected (Not Detecte) Coronavirus NL63 (PCR) Not detected (Not Detect) Human Metapneumovir PCR Not detected (Not Detect) Influenza Type A (PCR) Not detected (Not Detect) Influenza Type B (PCR) Not detected (Not Detect) M. pneumoniae (PCR) Not detected (Not Detect) Parainfluenza 1 (PCR) Not detected (Not Detect) Parainfluenza 2 (PCR) Not detected (Not Detect) Parainfluenza 3 (PCR) Not detected (Not Detect) Parainfluenza 4 (PCR) Not detected (Not Detect) RSV (PCR) Not detected (Not Detect) Entero/Rhino (PCR) Not detected (Not Detect) Imaging Data Chest x-ray: Radiologist's Impression: Close Chest X-Ray (Signed) Jayesh Lawler - 12/24/23 Mammogram Diagnostic (Signed) Tristen Grove - 05/10/23 Knee MRI (Signed) Arley Cervantes - 08/21/22 Hip MRI (Signed) Arley Cervantes - 08/21/22 Mammogram Diagnostic (Signed) Adolfo Covarrubias - 08/21/22 Mammogram, Additional Views (Signed) Ross Shin - 01/16/22 Breast Ultrasound (Signed) Ross Shin - 01/16/22 Abdominal Arterial Study US (Signed) Pancho Gracia - 12/19/21 Mammogram Screening (Signed) Amee Love - 12/19/21 Bone Densitometry 12/19/21 DEXA Result 12/19/21 Mammogram Screening (Signed) Ross Shin - 05/22/19 Pelvis Ultrasound (Signed) Jayesh Lawler - 04/21/19 Abdomen/Pelvis CT (Signed) Charles Serrano - 04/21/19 Brain MRI (Signed) Pancho Gracia - 04/03/19 Chest X-Ray (Signed) Cristian Marcus - 10/30/[address] [address] XRay Report Signed Patient: Louann Garcia MR#: [id number] : 1955 Acct:[id number] Age/Sex: 68 / F Date of Service: 12/24/23 Loc: ED Accession Number: [id number] Procedure: XR chest 1V Ordering Provider: Leslie Mccabe D.O. PROCEDURE: XR CHEST 1V INDICATIONS: Shortness of breath TECHNIQUE: One view of the chest was acquired. COMPARISON: [facility], , XR CHEST 1V, 10/30/2018, 21:46. FINDINGS: Surgical changes and devices: None. Lungs and pleura: Lungs are clear. No pleural effusions or pneumothorax. Mediastinum: Mediastinal contours appear normal. Heart size is normal. Bones and chest wall: No suspicious bony lesions. Overlying soft tissues appear unremarkable. IMPRESSION: No acute cardiopulmonary pathology. Dictated by: Jayesh Lawler M.D. on 12/24/2023 at 1:30 Approved by: Jayesh Lawler M.D. on 12/24/2023 at 1:30 ECG Data Attestation: I personally reviewed and interpreted this ECG as follows: Prior ECG tracings: available for review Interpretation: Sinus rhythm rate of 66 ID 148 QRS [address] No acute [address] changes patient's T- waves inverted in lead 3 but not in 2 and AVF. No other acute ST changes. Patient has prior from 10/30/2018 which appears same. [facility] Narrative Medical decision making narrative: Well-appearing 68-year-old female who presents with complaint of persistent cough that is nonproductive. She denies pain, she would some concern for aspiration as healthcare provider told her she might be having issues with this but she has not had dysphagia or other changes. She does have a hiatal hernia sounds like maybe has a little bit of cough variant asthma that is sometimes worsened by reflux. She has been using her inhaler which has not been helpful 3 or 4 times daily but she does not use spacer with it. She has tried some Tums with minimal improvement. On exam patient has a little bit of crackles on the bases. Chest x-ray is clear discussed with patient plan were respiratory panel as well as labs including BNP Labs white count 8.1, hemoglobin of 13 platelets of 431. Platelets were slightly elevated in 2019 as well. Patient's chloride 110 otherwise appropriate electrolytes, creatinine is normal LFTs are negative troponins less than 0.012 with a BNP of 45. EKG shows no acute changes appears similar from 2019 Respiratory panel is negative. Patient's workup patient has mild crackles in the base, no pneumonia or pulmonary edema on chest x-ray. Labs does not show an elevation in BNP, troponin was negative patient had any chest pain or pressure symptoms have been more a cough variant. Patient platelets are slightly elevated but were on past lab as well normal hemoglobin and no elevation white count. Respiratory panel is negative. Discussed with patient maybe having a flare of her cough variant asthma can try oral prednisone and see if this is helpful. Discharge Plan Departure Patient Disposition: Home Clinical Impression: Cough Activity Restrictions/Additional Instructions: Please follow up with primary care as needed. Your workup today is reassuring you had a little bit of crackles in your lung bases but no changes on chest x-ray consistent with pneumonia, no pulmonary edema your labs do not reflect any sort of fluid overload. I had recommend a short course of oral steroid to see if this is helpful for symptoms. [facility]cription [facility]. If you feel like your reflexes worse you can take Pepcid 20 mg daily. This is available [id number]. Please return new chest pain or shortness of breath, hemoptysis or coughing blood, lightheadedness or passing out, persistent vomiting, new swelling in extremities or other new or concerning changes. Prescriptions: New prednisone 10 mg tablets,dose pack See Rx Instructions .ROUTE .COMPLEX Qty: 21 0RF Rx Instructions: 6 tabs p.o. x1 day, then 5 tabs p.o. x1 day, then 4 tablets p.o. x1 day, then 3 tabs p.o. x1 day, then 2 tabs p.o. x1 day, then 1 tab p.o. x1 day No Action albuterol sulfate [Proventil HFA] 90 MCG/PUFF HFA aerosol inhaler 1 puff INHALATION Q4-6H PRN (Reason: Shortness Of Breath) epinephrine [EpiPen] 0.3 mg/0.3 mL Auto-Injector 0.3 mg IM PRN PRN (Reason: Allergic Reaction) Referrals: Fadia Tompkins MD [Primary Care Provider] - Stand Alone Forms: Patient Portal/API
[2023-12-24 02:14] LABS: Add Manual Diff / Slide Review NO; Basophils Absolute Auto 100 /uL (0-100); Eosinophils Absolute Auto 400 /uL (0-450); Eosinophils Percent Auto 4.5 % (2-4); Hematocrit 37.8 % (36-46); Lymphocytes Absolute Auto 3200 /uL (1100-4500); Mean Corpuscular HGB Conc 34.4 % (30-36); Mean Corpuscular Hemoglobin 29.5 PG (26-34); Mean Corpuscular Volume 85.7 fL (80-100); Monocytes Absolute Auto 700 /uL (0-900); Monocytes Percent Auto 8.3 % (3-14); Neutrophils Absolute Auto 3700 /uL (1500-7000); Neutrophils Percent Auto 46.2 % (50-75); Platelet Count 431 X10^3/uL (150-400); Red Blood Cell Count 4.42 X10^6/uL (4.0-5.2); Red Cell Distribution Width 12.5 % (11.6-14.8); White Blood Cell Count 8.1 X10^3/uL (4.5-11.0)
[2023-12-24 02:24] LABS: Alanine Aminotransferase 25 IU/L (<35); Albumin 4.4 g/dL (3.5-5.0); Albumin Globulin Ratio 1.8 (1.0-2.8); Alkaline Phosphatase 70 U/L (38-126); Aspartate Aminotransferase 23 IU/L (14-36); BUN Creatinine Ratio 21.9 (6-22); Bilirubin Total 0.3 mg/dL (0.2-1.3); Blood Urea Nitrogen 16 mg/dL (7-17); Calcium 9.2 mg/dL (8.4-10.2); Carbon Dioxide 27 mmol/L (22-32); Chloride 110 mmol/L (98-107); Creatine Kinase 81 U/L (30-135); Estimated Glomerular Filt Rate > 60 mL/min (>60); Globulin 2.4 g/dL (1.7-4.1); Glucose 98 mg/dL (80-110); HEMOLYSIS < 15 (0-50); Lipase 142 U/L (23-300); Potassium 4.1 mmol/L (3.4-5.1); Sodium 140 mmol/L (137-145); Total Protein 6.8 g/dL (6.3-8.2)
[2023-12-24 02:33] LABS: NT-proBNP (BNP-Adult 18+) 45 pg/mL (<125)
[2023-12-24 02:35] LABS: Troponin I < 0.012 ng/mL (0.01-0.034)
[2023-12-24 03:02] VITALS: BP 174/83; PULSE 66; RESP 20; O2SAT 96
[2023-12-24 03:08] LABS: Adenovirus Not Detected (Not Detect); B. parapertussis Not Detected (Not Detecte); Bordetella pertussis Not Detected (Not Detect); Chlamydophila pneumoniae Not Detected (Not Detect); Coronavirus 229E Not Detected (Not Detect); Coronavirus HKU1 Not Detected (Not Detect); Coronavirus NL 63 Not Detected (Not Detect); Coronavirus OC43 Not Detected (Not Detect); Human Metapneumovirus Not Detected (Not Detect); Human Rhinovirus/Enterovirus Not Detected (Not Detect); Influenza A Not Detected (Not Detect); Influenza B Not Detected (Not Detect); Mycoplasma pneumoniae Not Detected (Not Detect); Parainfluenza Virus 1 Not Detected (Not Detect); Parainfluenza Virus 2 Not Detected (Not Detect); Parainfluenza Virus 3 Not Detected (Not Detect); Parainfluenza Virus 4 Not Detected (Not Detect); Respiratory Syncytial Virus Not Detected (Not Detect); SARS- CoV-2 Not Detected (Not Detecte)
[2023-12-24 03:28] VITALS: BP 171/74; PULSE 74; RESP 23; O2SAT 97
[2023-12-24 03:30] VITALS: BP 167/72; PULSE 72; RESP 18; O2SAT 97
[2023-12-24] MEDS: predniSONE 20 MG TABLET 60 MG PO (03:41)
== END 2023-12-24 03:43 | disposition home or self-care (01) ==
PROVIDERS: Emergency Provider Emergency Medicine; PCP Family Medicine
DX: R05.9 Cough, unspecified (principal); R06.02 Shortness of breath; R03.0 Elevated blood-pressure reading, without diagnosis of hypertension
CPT/HCPCS: 36415; 71045; 80053; 82550; 83690; 83880; 84484; 85025; 87633; 93005; 99284

== ENCOUNTER → 2024-07-10 12:04 | Outpatient (CLI) | payer MEDICARE, OTHER, SELFPAY ==
--- NOTE | 2024-07-10 12:07 | DI.RAD.S_ITS ---
PROCEDURE: XR ANKLE RT MIN 3V INDICATIONS: ANKLE PAIN TECHNIQUE: 3 views of the ankle were acquired. COMPARISON: [facility], CR, XR ANKLE 1 OR 2 VIEWS WEIGHT BEARING RIGHT, 03/27/2022, 14:19. FINDINGS: Bones: No displaced fracture or dislocation. Possible prominent os navicularis. Soft tissues: No suspicious calcifications. IMPRESSION: No acute radiographic abnormality. If there is high concern for further derangement, consider MRI evaluation. Dictated by: Adolfo Covarrubias M.D. on 07/10/2024 at 16:11 Approved by: Adolfo Covarrubias M.D. on 07/10/2024 at 16:13
== END ==
LOC: RAD 12:06
PROVIDERS: PCP Family Medicine; Referring Provider Family Medicine; Visit Provider Family Medicine
DX: M25.571 Pain in right ankle and joints of right foot (principal)
CPT/HCPCS: 73610

== ENCOUNTER → 2024-08-14 10:12 | Outpatient (CLI) | payer MEDICARE, OTHER, SELFPAY ==
--- NOTE | 2024-08-14 10:14 | DI.US.S_ITS ---
LIMITED ULTRASOUND OF RIGHT BREAST: 08/14/2024 CLINICAL: Focal right breast pain. Comparison is made to exams dated: 08/14/2024 mammogram, 05/10/2023 mammogram, 08/21/2022 mammogram, 01/16/2022 ultrasound, 01/16/2022 mammogram, and 12/19/2021 mammogram - [facility]. Color flow and real-time ultrasound of the right breast retroareolar were performed. Mcdonald scale images of the real-time examination were reviewed. No mass or cyst. Small right retroareolar duct. Similar pattern to 2021. IMPRESSION: BENIGN There is no sonographic evidence of malignancy. Small right retroareolar duct is benign. Patient denies nipple discharge. Exam findings were conveyed to the patient. Patient is advised to monitor for significant change. Clinical follow-up as needed. A 1 year screening mammogram is recommended. This exam was interpreted at Station ID: [id number]. Electronically Signed By: Preston Velasco M.D. slc/:08/14/2024 11:39:56 copy to: ENOCH MCKEON letter sent: Normal Exam ACR BI-RADS Category 2: Benign
--- NOTE | 2024-08-14 10:14 | DI.MG.S_ITS ---
BILATERAL DIGITAL DIAGNOSTIC MAMMOGRAM 3D/2D: 08/14/2024 CLINICAL: Right Breast Pain. Comparison is made to exams dated: 12/19/2021 mammogram, 05/22/2019 mammogram, and 05/10/2023 mammogram - [facility]. There are scattered areas of fibroglandular density (category b / 25%-50% glandular tissue). No significant masses, calcifications, or other findings are seen in either breast. IMPRESSION: INCOMPLETE: NEED ADDITIONAL IMAGING EVALUATION No mammographic evidence of malignancy. A targeted ultrasound is recommended and will immediately follow. Based on the Tyrer Cuzick model (a risk assessment model) the patient's lifetime risk is 6.9% and her 10 year risk is 3.6%. According to the ACR, ACS, and NCCN guidelines, an annual breast MRI exam along with mammogram is recommended if the patient's lifetime risk is 20% or greater. This exam was interpreted at Station ID: [id number]. NOTE: For mammograms, a report in lay terms will be sent to the patient. Approximately 15% of breast malignancies will not be visualized mammographically. In the management of a palpable breast mass, a negative mammogram must not discourage biopsy of a clinically suspicious lesion. Electronically Signed By: Preston Velasco M.D. slc/:08/14/2024 10:51:46 copy to: ENOCH MCKEON letter sent: Additional Imaging Needed ACR BI-RADS Category 0: Incomplete: Need Additional Imaging Evaluation
== END ==
PROVIDERS: PCP Family Medicine; Referring Provider Family Medicine; Visit Provider Family Medicine
DX: N64.4 Mastodynia (principal); Z87.898 Personal history of other specified conditions
CPT/HCPCS: 76642; 77066; G0279